=== PATIENT | female | born 1970 | race Caucasian/White ===

== ENCOUNTER → 2016-07-22 | Outpatient (CLI) | payer BC | LOC: LAB 12:08 | DX: R19.5 Other fecal abnormalities (principal) | CPT/HCPCS: 36415; 82565; 84520 ==

== ENCOUNTER → 2016-07-23 | Outpatient (CLI) | payer BC | LOC: CT 11:03 | DX: R19.05 Periumbilic swelling, mass or lump (principal); K42.9 Umbilical hernia without obstruction or gangrene; K80.20 Calculus of gallbladder without cholecystitis without obstruction | CPT/HCPCS: J7050; Q9962 ==

== ENCOUNTER → 2021-02-16 | Outpatient (CLI) | payer BC | LOC: KOH-I 13:13 | DX: R05.9 Cough, unspecified (principal); F17.200 Nicotine dependence, unspecified, uncomplicated; M54.12 Radiculopathy, cervical region | CPT/HCPCS: 71046; 72050 ==